=== PATIENT | male | born 2005 | race African-American/Black ===

== ENCOUNTER 2023-06-23 23:03 | Emergency (ER) | payer OTHER ==
[~2023-06-23] VITALS: Ht 177.8 cm; Wt 57.0 kg
[2023-06-23 23:41] VITALS: TEMP 96; O2SAT 100
[2023-06-24] VITALS: BP 124/76; PULSE 80; RESP 16
[2023-06-24] MEDS: IBUPROFEN 600MG TABLET PO ONE
[2023-06-24] MEDS ORDERED: IBUP-2029 MT (01:22)
[2023-06-24] MEDS ORDERED: METH-653 MT (01:22)
== END 2023-06-24 05:03 | disposition home or self-care (01) ==
LOC: ER 23:03
DX: S39.012A Strain of muscle, fascia and tendon of lower back, initial encounter (principal); F19.90 Other psychoactive substance use, unspecified, uncomplicated; V98.8XXA Other specified transport accidents, initial encounter; Y93.89 Activity, other specified; Y92.89 Other specified places as the place of occurrence of the external cause; Y99.8 Other external cause status
CPT/HCPCS: 72070; 72100; 99284